=== PATIENT | male | born 1995 | race Caucasian/White ===

== ENCOUNTER 2023-11-18 10:41 | Inpatient (IN) ==
[2023-11-18 12:41] LABS: Urine Appearance Clear; Urine Bilirubin Negative (Negative); Urine Blood Negative (Negative); Urine Color Light-Yellow; Urine Glucose Negative (Negative); Urine Ketones Negative (Negative); Urine Nitrite Negative (Negative); Urine Protein Negative (Negative); Urine Specific Gravity 1.012 (1.002-1.030); Urine Urobilinogen Negative (Negative); Urine pH 7.5 (5.0-8.0)
[2023-11-18 12:52] LABS: ABS Basophils 0.1 10^3/uL (0.0-0.1); ABS Eosinophils 0.3 10^3/uL (0.0-0.5); ABS Lymphocytes 1.4 10^3/uL (1.0-4.8); ABS Monocytes 0.6 10^3/uL (0.0-1.1); ABS Neutrophils 4.7 10^3/uL (1.5-7.6); Eosinophil % 3.6 %; Hematocrit 43.7 % (38-53); Lymphocyte % 19.7 %; Mean Corpuscular Hemoglobin 31.7 pg (27-33); Mean Corpuscular Hgb Conc 34.3 g/dL (31-36); Mean Corpuscular Volume 92.5 fL (80-97); Mean Platelet Volume 6.2 fL (7.5-11.2); Nucleated Red Blood Cells % 0.1 %/100WBC (0.0-0.8); Platelet Count 331 10^3/uL (150-450); Red Blood Count 4.72 10^6/uL (4.06-5.63); Red Cell Distribution Width 14.9 % (12-17); White Blood Count 7.1 10^3/uL (3.6-10.2)
[2023-11-18 12:53] LABS: Urine Bacteria Absent /HPF (Absent); Urine Red Blood Cell Trace(0-2/hpf) /HPF (0-Trace); Urine White Blood Cell Trace(0-5/hpf) /HPF (0-Trace)
[2023-11-18 13:15] LABS: ALT 32 U/L (7-52); AST 28 U/L (13-39); Acetaminophen < 15 mcg/mL; Albumin 4.3 g/dL (3.2-5.2); Alcohol, S 31 mg/dL (<13); Alkaline Phosphatase 54 U/L (35-149); Anion Gap 11 mmol/L (2-16); Blood Urea Nitrogen 8 mg/dL (6-24); CO2 Carbon Dioxide 24 mmol/L (22-32); Calcium 9.7 mg/dL (8.6-10.3); Chloride 107 mmol/L (101-111); Creatinine, Serum 1.02 mg/dL (0.67-1.17); Globulin 2.1 g/dL (2-4); Glucose 96 mg/dL (70-100); Potassium 4.1 mmol/L (3.5-5.0); Salicylate < 2.50 mg/dL (<30); Sodium 142 mmol/L (135-145); Total Bilirubin 0.4 mg/dL (0.2-1.0); Total Protein 6.4 g/dL (6.4-8.9)
[2023-11-18 13:22] LABS: TSH Ultra Thyroid Stim Horm 0.83 mcIU/mL (0.34-5.60)
[2023-11-18 13:33] LABS: Urine Benzodiazepine Screen None Detected (None Detect); Urine Cannabinoids Screen None Detected (None Detect); Urine Opiates Screen None Detected (None Detect)
[2023-11-18] MEDS ORDERED: Al Hydrox/Mg Hydrox/Simet LIQ 30 ML UDC PO PRN (19:38)
[2023-11-18] MEDS: DULoxetine DR 60 mg CAP PO SCH (21:07)
[2023-11-18 21:42] VITALS: BP 137/93
[2023-11-19] MEDS: Multivitamins/Minerals TAB PO SCH (08:13)
[2023-11-19] MEDS: Nicotine PATCH 21 MG/24 HR PATCH TRANSDERM SCH (08:14)
[2023-11-19 08:53] LABS: HDL Cholesterol 58.9 mg/dL
[2023-11-19] MEDS: Nicotine Lozenge mini 4 MG LOZNG.MINI MT PRN (14:50)
[2023-11-20] MEDS: DULoxetine DR 60 mg CAP PO SCH (09:01)
[2023-11-20] MEDS: Nicotine Lozenge mini 2 MG LOZNG.MINI MT PRN (10:12)
== END 2023-11-20 11:00 | disposition home or self-care (01) | DRG 774 ==
LOC: ED 10:41 → EDHOLD 19:54 → BSU 20:58
PROVIDERS: ADMIT Psychiatry & Neurology Psychiatry; ATTEND Student in an Organized Health Care Education/Training Program